=== PATIENT | male | born 1930 | race Caucasian/White ===

== ENCOUNTER 2017-11-03 11:17 | Inpatient (IN) | payer MEDICARE ==
[~2017-11-03] VITALS: Ht 365.8 cm; Wt 89.1 kg
[~2017-11-03 11:17] MED LIST: AMLODIPINE BESYL5 MG PO; ARICEPT5 MG PO; CALCIUM CARBON500 MG PO; CENTRUM MULTIV1 EACH; CICLOPIROX15 GM TOP; COUMADIN3 MG PO; EDARBI40 MG PO; HYDROCHLOROTHIA25 MG PO; LACTULOSE20 GM/30 M PO; LISINOPRIL20 MG PO; METOPROLOL SUCC50 MG PO; METOPROLOL TART50 MG PO; NAMENDA10 MG PO; OYSTER SHELL C1 EA12 PO; POTASSIUM99 M1 PO; TAMSULOSIN HCL0.4 MG PO; VANCOMYCIN HCL500 MG IV; VITAMIN C1500 MG PO; Z TEKTURNA HCT; Z.0.COUMADIN5 MG; Z.0.ESIDRIX25 MG; Z.0.LOPRESSOR50 MG; Z.0.PRINIVIL20 MG
[2017-11-03] MEDS ORDERED: SODIUM CHLORIDE 0.9% 1000ML 1,000 ML IV STA (12:55)
[2017-11-03 13:10] LABS: BASOPHILS % 0.4 % (0.0-1.0); EOSINOPHILS # (AUTO) 0.7 (0.0-0.4); EOSINOPHILS % 8.8 % (0.0-6.0); HEMATOCRIT 35.5 % (38.2-49.6); HEMOGLOBIN 12.5 g/dL (14.0-18.0); LYMPHOCYTES % 25.4 % (18.0-39.1); MEAN CORPUSCULAR HEMOGLOBIN 31.4 pg (28-32); MEAN CORPUSCULAR HGB CONC 35.2 g/dL (31-35); MEAN CORPUSCULAR VOLUME 89.2 fL (81-99); MONOCYTES # (AUTO) 0.7 (0.2-0.8); NEUTROPHILS # (AUTO) 4.5 (2.1-6.9); NEUTROPHILS % 56.1 % (38.7-80.0); PLATELET COUNT 173 x10e3/uL (140-360); RED BLOOD COUNT 3.98 x10e6/uL (4.3-5.7); RED CELL DISTRIBUTION WIDTH 13.3 % (11.7-14.4)
[2017-11-03 13:27] LABS: ALANINE AMINOTRANSFERASE 14 IU/L (0-55); ALBUMIN 3.2 g/dL (3.5-5.0); ALBUMIN/GLOBULIN RATIO 0.8 (0.8-2.0); ALKALINE PHOSPHATASE 74 IU/L (40-150); ANION GAP 10.8 mmol/L (8-16); BLOOD UREA NITROGEN 17 mg/dL (7-26); BUN/CREATININE RATIO 20 (6-25); CALCIUM 8.9 mg/dL (8.4-10.2); CARBON DIOXIDE 27 mmol/L (22-29); CHLORIDE 100 mmol/L (98-107); CREATININE, SERUM 0.87 mg/dL (0.72-1.25); EST GLOMERULAR FILTRATION RATE > 60 ML/MIN (60-); GLUCOSE 101 mg/dL (74-118); POTASSIUM 3.8 mmol/L (3.5-5.1); SODIUM 134 mmol/L (136-145)
--- NOTE | 2017-11-03 13:33 | Diagnostic Imaging Report ---
PROCEDURE:CHEST SINGLE (PORTABLE) TECHNIQUE:Portable AP chest INDICATION:UTI symptoms COMPARISON:Patients [facility], , CHEST SINGLE (PORTABLE), 09/29/2017, 8:17. FINDINGS: Cardiomegaly with central vascular prominence and mild central peribronchial cuffing. No focal airspace disease. 2-lead pacemaker of the right hemithorax; leads intact. Intact skeleton. CONCLUSION: Cardiomegaly with central vascular congestion. No interval change from September 2017. Dictated by: Darien Moreno M.D. on 11/03/2017 at 13:42 Electronically approved by: Darien Moreno M.D. on 11/03/2017 at 13:42
[2017-11-03 15:27] LABS: BILIRUBIN,URINE NEGATIVE (NEGATIVE); COLOR,URINE YELLOW (YELLOW); KETONES,URINE NEGATIVE (NEGATIVE); LEUKOCYTE ESTERASE ,URINE 2+ (NEGATIVE); NITRITE,URINE NEGATIVE (NEGATIVE); PROTEIN,URINE DIPSTICK NEGATIVE (NEGATIVE); URINE UROBILINOGEN 0.2 mg/dL (0.2 - 1)
[2017-11-03 15:29] LABS: CLARITY,URINE CLOUDY (CLEAR)
[2017-11-03 15:43] LABS: RBC,URINE 0-5 /HPF (0-5)
[2017-11-03 15:44] LABS: BACTERIA,URINE FEW /HPF
--- NOTE | 2017-11-03 16:09 | Diagnostic Imaging Report ---
Examination: CT BRAIN WITHOUT CONTRAST History:Altered mental status. Confusion. Comparison studies:November 08, [address] Technique: Axial images were obtained from the skull base to the vertex. Coronal and sagittal images reconstructed from the axial data. Intravenous contrast: None Findings: Scalp: No abnormalities. Bones: No fractures, blastic or lytic lesions. Brain sulci: Moderate volume loss for age. Ventricles: No hydrocephalus. Extra-axial space: No abnormalities. Parenchyma: There are confluent areas of hypoattenuation in the periventricular and subcortical white matter, nonspecific. No masses, hemorrhage, or acute or chronic cortical based vascular insults. Sellar/suprasellar region: CSF filled sella. Craniocervical junction: Patent foramen magnum. No Chiari one malformation. Incidental findings: Punctate tonsillar calcifications are partially visualized. Impression: 1. No new or acute intracranial abnormalities. No change from prior head CT performed November 08, 2016. 2. Unchanged moderate volume loss. 3. Unchanged moderate chronic microvascular ischemic change. Signed by: Dr. Eli Arce M.D. on 11/03/2017 4:06 PM
[2017-11-03] MEDS ORDERED: GENTAMICIN 80MG/NS 100 ML 100 ML IV STA (16:15)
[2017-11-03] MEDS ORDERED: LACTULOSE SYRUP 20 GM/30 ML UDC PO PRN (17:15)
[2017-11-03] MEDS: SODIUM CHLORIDE 0.9% 1000ML 1,000 ML IV SCH (17:46)
[2017-11-03 19:39] VITALS: BP 151/65
[2017-11-03] MEDS: MEMANTINE 10 MG TAB PO SCH (21:59)
[2017-11-03] MEDS: DONEPEZIL HCL 5 MG TAB PO SCH (21:59)
[2017-11-03 22:12] VITALS: BP 151/65
[2017-11-04] VITALS (7 sets, daily range): BP systolic 145–188; BP diastolic 64–85
[2017-11-04] MEDS: SODIUM CHLORIDE 0.9% 1000ML 1,000 ML IV SCH ×3 (04:17→15:54)
[2017-11-04 06:55] LABS: BASOPHILS % 0.3 % (0.0-1.0); EOSINOPHILS # (AUTO) 0.9 (0.0-0.4); EOSINOPHILS % 9.9 % (0.0-6.0); HEMATOCRIT 34.5 % (38.2-49.6); LYMPHOCYTES # (AUTO) 2.5 (1.0-3.2); LYMPHOCYTES % 26.6 % (18.0-39.1); MEAN CORPUSCULAR HGB CONC 34.8 g/dL (31-35); MEAN CORPUSCULAR VOLUME 89.1 fL (81-99); MONOCYTES # (AUTO) 0.8 (0.2-0.8); MONOCYTES % 8.6 % (4.4-11.3); NEUTROPHILS % 54.4 % (38.7-80.0); PLATELET COUNT 168 x10e3/uL (140-360); RED BLOOD COUNT 3.87 x10e6/uL (4.3-5.7); RED CELL DISTRIBUTION WIDTH 13.4 % (11.7-14.4)
[2017-11-04] MEDS ORDERED: BUDESONIDE/FORMOTEROL 160/4.5MCG INHALER INH SCH (07:00)
[2017-11-04 07:17] LABS: BLOOD UREA NITROGEN 13 mg/dL (7-26); BUN/CREATININE RATIO 18 (6-25); CALCIUM 8.7 mg/dL (8.4-10.2); CARBON DIOXIDE 24 mmol/L (22-29); CHLORIDE 105 mmol/L (98-107); CREATININE, SERUM 0.72 mg/dL (0.72-1.25); EST GLOMERULAR FILTRATION RATE > 60 ML/MIN (60-); GLUCOSE 83 mg/dL (74-118); SODIUM 136 mmol/L (136-145)
[2017-11-04] MEDS: MEMANTINE 10 MG TAB PO SCH ×2 (08:35→16:03)
--- NOTE | 2017-11-04 10:19 | History and Physical ---
HISTORY OF PRESENT ILLNESS: Patient was sent to the emergency room by his [employer]. The states the [employer] nurse phoned them and told them to take the patient to the emergency room. 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 The patient's history is not reliable, but he denies adverse symptoms on complete review of systems. The family relates he has not walked for 2 weeks. Prior to that he had walked once or twice over the past year. Essentially for the past year, the patient has been confined to nursing homes or long-term hospital or acute care hospitals except for a few short stays at home. The family is encouraged to keep the patient in a senior care on his last 2 senior care admissions and declined. PAST MEDICAL HISTORY: History is positive for hypertension and chronic atrial fibrillation. Patient has had on recent stays here gross hematuria and has not been able to be anticoagulated recently because of that. He has a history of lower obstructive disease with recommendation for chronic Monaco by his urologist appropriately. BPH. History also includes chronic obesity. Obstructive sleep apnea with CPAP at home. LVH. The patient also has history of syndrome of inappropriate ADH has had intermittent hyponatremia in the past. He is on fluid restriction at home. 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 HOME MEDICATIONS: See also old computerized list of home meds. LABORATORY DATA: Hemoglobin 12.5, white count 7.98, platelets 173,000. Today, his emergency room urinalysis revealed 11 to 20 white cells per high power field. Nitrite, however, is negative. Leukocyte esterase is positive 2+. The patient has a chronic indwelling Monaco. Serum chemistry reveals sodium 134 at this time. Albumin 3.2, trace low. Cultures of urine and blood are pending. Today the emergency room chest x-ray with cardiomegaly and central vascular congestion unchanged from September. of this year. The emergency room performed a brain CT which is unchanged from CT here November 08, 2016 revealing moderate volume loss. Confluent areas of hypoattenuation and periventricular and subcortical white matter nonspecific. CSF filled sella. Punctate calcifications. Chronic microvascular ischemic changes. PAST SURGICAL HISTORY: Includes cataracts 2005 and 2006. In 1983, melanoma. Pacemaker right anterior chest. FAMILY HISTORY: Negative. SOCIAL HISTORY: Currently no use of tobacco or alcohol. 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 PHYSICAL EXAMINATION VITAL SIGNS: Temperature 97.4. Pulse is 62 and regular. Respiratory rate is 18 not labored. Blood pressure 135/62 on arrival and followup BP 168/68. O2 saturation 98%. HEENT: Pupils round and reactive. No icterus or pallor. Throat clear. NECK: Supple. Carotids palpable. No palpable goiter. PULMONARY: On auscultation, the patient is not cooperate for auscultation. CARDIOVASCULAR: Cardiac sounds S1 S2 distant. Patient has a right upper anterior subcutaneous chest pacemaker. ABDOMEN: Soft. Bowel sounds are normal. EXTREMITIES: Free of edema, clubbing or cyanosis. Peripheral pulses are palpable. NEUROLOGIC: DTRs depressed symmetrically. Strength poor. The patient is able to sit up for a short period of time fro a few minutes with assistance only. He moves all 4 extremities. DTRs depressed. No pathological reflexes. CURRENT IMPRESSION: Bacteriuria. Family reports that he was unarousable this morning and, therefore, was sent to the emergency room by his [employer]. History of multiple chronic medical illnesses including chronic dementia. Hypertensive cardiovascular disease with left ventricular hypertrophy. Chronic required pacemaker. Chronic atrial fibrillation. Lower genitourinary obstructive disease with BPH and chronic indwelling Monaco and chronic bacteriuria. Obesity. Obstructive sleep apnea with CPAP at home. Syndrome of inappropriate ADH secretion. Gross hematuria on recent prior stay here. See also initial orders per the emergency room. Current plans are to assure hydration while according inciting of his hyponatremia. Control blood pressure. Treat UTI. The patient needs to be on fall precautions. He is not ambulatory. Avoid bed sores. See initial and followup orders. Job#: [id number] [email or web address]
[2017-11-04] MEDS ORDERED: GENTAMICIN SULFATE IV SCH (15:00)
[2017-11-04] MEDS ORDERED: SODIUM CHLORIDE 0.9% IV SCH (15:00)
[2017-11-04] MEDS ORDERED: GENTAMICIN 80MG/NS 100 ML 100 ML IV SCH (15:00)
[2017-11-04] MEDS: AMLODIPINE BESYLATE 5 MG TAB PO SCH (15:54)
[2017-11-04] MEDS ORDERED: LINEZOLID 600 MG/D5W 300ML 300 ML IV ONE (16:00)
[2017-11-04] MEDS: DONEPEZIL HCL 5 MG TAB PO SCH (20:50)
[2017-11-05] MEDS: SODIUM CHLORIDE 0.9% 1000ML 1,000 ML IV SCH ×3 (00:15→16:15)
[2017-11-05 00:33] VITALS: BP 182/82
[2017-11-05 04:57] VITALS: BP 185/75
[2017-11-05 07:10] LABS: BASOPHILS % 0.4 % (0.0-1.0); EOSINOPHILS # (AUTO) 0.9 (0.0-0.4); EOSINOPHILS % 8.7 % (0.0-6.0); HEMATOCRIT 34.8 % (38.2-49.6); HEMOGLOBIN 11.9 g/dL (14.0-18.0); LYMPHOCYTES # (AUTO) 2.3 (1.0-3.2); LYMPHOCYTES % 21.7 % (18.0-39.1); MEAN CORPUSCULAR HEMOGLOBIN 30.9 pg (28-32); MEAN CORPUSCULAR HGB CONC 34.2 g/dL (31-35); MEAN CORPUSCULAR VOLUME 90.4 fL (81-99); MONOCYTES % 8.9 % (4.4-11.3); NEUTROPHILS # (AUTO) 6.4 (2.1-6.9); PLATELET COUNT 153 x10e3/uL (140-360); RED BLOOD COUNT 3.85 x10e6/uL (4.3-5.7); RED CELL DISTRIBUTION WIDTH 13.4 % (11.7-14.4)
[2017-11-05 07:43] VITALS: BP 179/92
[2017-11-05 07:51] LABS: ANION GAP 10.8 mmol/L (8-16); BLOOD UREA NITROGEN 11 mg/dL (7-26); BUN/CREATININE RATIO 15 (6-25); CALCIUM 8.9 mg/dL (8.4-10.2); CARBON DIOXIDE 25 mmol/L (22-29); CHLORIDE 103 mmol/L (98-107); CREATININE, SERUM 0.72 mg/dL (0.72-1.25); EST GLOMERULAR FILTRATION RATE > 60 ML/MIN (60-); GLUCOSE 87 mg/dL (74-118); POTASSIUM 3.8 mmol/L (3.5-5.1); SODIUM 135 mmol/L (136-145)
--- NOTE | 2017-11-05 09:20 | Progress Note ---
DATE: November 05, 2017 MEDICINE PROGRESS NOTE TIME OF SERVICE: 8:24 a.m. SUBJECTIVE: Overnight patient coughing. REVIEW OF SYSTEMS: Unreliable. VITAL SIGNS: Reviewed. PHYSICAL EXAMINATION GENERAL APPEARANCE: A tired-appearing man resting in bed. HEENT: Anicteric. CARDIOVASCULAR: Normal S1/S2. LUNGS: Moderate breath sounds. Coughing with deep inspiration. ABDOMEN: Soft, nontender, nondistended. EXTREMITIES: No edema. SKIN: Dry. PSYCHIATRIC: Flat affect. LABS: Reviewed. MEDICATIONS: Reviewed. ASSESSMENT AND PLAN: This is an 87-year-old man. 1. Vancomycin-resistant enterococcus urinary tract infection. Use linezolid. 2. Chronic atrial fibrillation, now rate controlled. 3. Acute metabolic encephalopathy secondary to urinary tract infection. Continue linezolid. 4. Physical deconditioning. Physical therapy consultation. 5. Acute bronchitis. Patient is coughing. His chest x-ray did not show any infiltrate. Will treat him with antitussive medication and maybe a Z-Matt if needed. 6. Normocytic anemia, mild. Will follow. 7. Hypertension, uncontrolled. Will titrate medication. 8. Dementia. Continue donepezil and memantine. 9. Prophylaxis. Will use SCDs and Pepcid. 10. Disposition. Start antitussive medication. I have discussed the case with patient's . Will get Physical Therapy on board. Job#: [id number] EV
[2017-11-05] MEDS: LINEZOLID 600 MG/D5W 300ML 300 ML IV SCH ×2 (09:30→20:41)
[2017-11-05] MEDS: MEMANTINE 10 MG TAB PO SCH ×2 (09:30→17:00)
[2017-11-05] MEDS: BENZONATATE 100 MG CAP PO SCH ×3 (09:30→20:42)
[2017-11-05] MEDS: AMLODIPINE BESYLATE 5 MG TAB PO SCH (09:30)
[2017-11-05 11:34] VITALS: BP 181/86
[2017-11-05] MEDS: METOPROLOL SUCCINATE 50 MG TAB XL PO SCH ×2 (11:50→17:00)
[2017-11-05] MEDS: GUAIFENESIN/DEXTROMETHORPHAN LIQD 5 ML UDC NG SCH ×2 (14:00→21:33)
[2017-11-05 16:10] VITALS: BP 138/63
[2017-11-05] MEDS: FAMOTIDINE 20 MG TAB PO SCH (16:30)
[2017-11-05 20:00] VITALS: BP 167/75
[2017-11-05] MEDS: DONEPEZIL HCL 5 MG TAB PO SCH (20:41)
[2017-11-05] MEDS: NIFEDIPINE CR 30 MG TAB PO SCH (20:42)
[2017-11-06] VITALS: BP 132/90
[2017-11-06] MEDS: SODIUM CHLORIDE 0.9% 1000ML 1,000 ML IV SCH ×3 (00:15→16:15)
[2017-11-06 04:00] VITALS: BP 150/89
[2017-11-06] MEDS: GUAIFENESIN/DEXTROMETHORPHAN LIQD 5 ML UDC NG SCH ×4 (05:46→21:46)
[2017-11-06 07:58] VITALS: BP 162/88
[2017-11-06] MEDS: METOPROLOL SUCCINATE 50 MG TAB XL PO SCH ×2 (09:30→17:00)
[2017-11-06] MEDS: NIFEDIPINE CR 30 MG TAB PO SCH ×2 (09:30→20:23)
[2017-11-06] MEDS: FAMOTIDINE 20 MG TAB PO SCH ×2 (09:30→16:30)
[2017-11-06] MEDS: BENZONATATE 100 MG CAP PO SCH ×3 (09:30→20:23)
[2017-11-06] MEDS: MEMANTINE 10 MG TAB PO SCH ×2 (09:30→17:00)
[2017-11-06] MEDS: LINEZOLID 600 MG/D5W 300ML 300 ML IV SCH ×2 (09:45→20:23)
[2017-11-06 12:21] VITALS: BP 111/56
[2017-11-06 16:17] VITALS: BP 138/70
[2017-11-06 20:00] VITALS: BP 138/93
[2017-11-06] MEDS: DONEPEZIL HCL 5 MG TAB PO SCH (20:23)
[2017-11-07] MEDS: SODIUM CHLORIDE 0.9% 1000ML 1,000 ML IV SCH ×3 (00:15→16:15)
[2017-11-07 04:00] VITALS: BP 158/75
[2017-11-07] MEDS: GUAIFENESIN/DEXTROMETHORPHAN LIQD 5 ML UDC NG SCH ×3 (05:21→21:21)
[2017-11-07] MEDS: FAMOTIDINE 20 MG TAB PO SCH ×2 (07:30→16:30)
[2017-11-07 08:38] VITALS: BP 169/79
[2017-11-07] MEDS: LINEZOLID 600 MG/D5W 300ML 300 ML IV SCH ×2 (08:41→21:20)
[2017-11-07] MEDS: NIFEDIPINE CR 30 MG TAB PO SCH ×2 (09:00→21:20)
[2017-11-07] MEDS: METOPROLOL SUCCINATE 50 MG TAB XL PO SCH ×2 (09:00→17:00)
[2017-11-07] MEDS: MEMANTINE 10 MG TAB PO SCH ×2 (09:00→17:00)
[2017-11-07] MEDS: BENZONATATE 100 MG CAP PO SCH ×3 (09:00→21:20)
[2017-11-07 16:00] VITALS: BP 190/75
[2017-11-07 20:00] VITALS: BP 181/86
[2017-11-07] MEDS: DONEPEZIL HCL 5 MG TAB PO SCH (21:20)
[2017-11-08] VITALS: BP 153/75
[2017-11-08] MEDS: SODIUM CHLORIDE 0.9% 1000ML 1,000 ML IV SCH ×3 (00:15→16:15)
[2017-11-08 04:00] VITALS: BP 159/84
[2017-11-08] MEDS: GUAIFENESIN/DEXTROMETHORPHAN LIQD 5 ML UDC NG SCH ×3 (05:20→21:04)
[2017-11-08 08:16] VITALS: BP 165/79
[2017-11-08] MEDS: FAMOTIDINE 20 MG TAB PO SCH ×2 (08:30→16:45)
[2017-11-08] MEDS: LINEZOLID 600 MG/D5W 300ML 300 ML IV SCH ×2 (10:30→21:04)
[2017-11-08] MEDS: NIFEDIPINE CR 30 MG TAB PO SCH ×2 (10:34→21:04)
[2017-11-08] MEDS: METOPROLOL SUCCINATE 50 MG TAB XL PO SCH ×2 (10:34→16:45)
[2017-11-08] MEDS: MEMANTINE 10 MG TAB PO SCH ×2 (10:34→16:45)
[2017-11-08] MEDS: BENZONATATE 100 MG CAP PO SCH ×3 (10:34→21:04)
--- NOTE | 2017-11-08 11:01 | Diagnostic Imaging Report ---
PROCEDURE: A single AP view of the chest. COMPARISON: Portable chest 11/03/2017. INDICATIONS: CONFUSION/UTI FINDINGS: Lines/tubes: Right chest cardiac device with leads projecting over the expected regions of the right atrium and ventricle. Lungs: The lungs are well inflated and clear. There is no evidence of pneumonia or pulmonary edema. Bibasilar atelectasis. Pleura: There is no pleural effusion or pneumothorax. Heart and mediastinum: The heart and the mediastinum are unremarkable. Bones: No acute bony abnormality. Degenerative changes of the thoracic spine. IMPRESSION: No acute radiographic abnormality. Dictated by: Otto Colon M.D. on 11/08/2017 at 11:09 Electronically approved by: Otto Colon M.D. on 11/08/2017 at 11:09
[2017-11-08 12:35] VITALS: BP 139/87
[2017-11-08 16:33] VITALS: BP 177/81
[2017-11-08 20:00] VITALS: BP 180/88
[2017-11-08] MEDS: DONEPEZIL HCL 5 MG TAB PO SCH (21:04)
[2017-11-09] VITALS: BP 151/73
[2017-11-09] MEDS: SODIUM CHLORIDE 0.9% 1000ML 1,000 ML IV SCH ×3 (00:15→16:15)
--- NOTE | 2017-11-09 03:19 | Progress Note ---
DATE: November 08, 2017 TIME: 4:30 a.m. OVERNIGHT: No events. REVIEW OF SYSTEMS: Denies any chest pain. Some cough and had a bowel movement. Review of systems negative. PHYSICAL EXAMINATION VITAL SIGNS: Reviewed. GENERAL: A tired-appearing man resting in bed. HEENT: Anicteric. CARDIOVASCULAR: Normal S1 and S2. LUNGS: Moderate breath sounds. Some cough on deep inspiration. ABDOMEN: Soft, nontender and nondistended. EXTREMITIES: No edema. SKIN: Dry. PSYCHIATRIC: Flat affect. LABS: Reviewed. MEDICATIONS: Reviewed. ASSESSMENT: An 87-year-old man with: 1. Vancomycin-resistant enterococcus urinary tract infection. 2. Acute bronchitis. 3. Chronic atrial fibrillation. 4. Acute metabolic encephalopathy due to urinary tract infection. 5. Physical deconditioning. 6. Normocytic anemia. 7. Hypertension. 8. Dementia. 9. Constipation. PLAN 1. Check labs. 2. Obtain chest x-ray. 3. Continue linezolid. 4. Blood pressure control and heart rate control. 5. Continue physical therapy. 6. Bowel regimen for constipation. 7. Discussed case with the at bedside. Job#: [id number] JAZ
[2017-11-09 04:00] VITALS: BP 163/79
[2017-11-09] MEDS: GUAIFENESIN/DEXTROMETHORPHAN LIQD 5 ML UDC NG SCH ×3 (05:15→23:03)
[2017-11-09] MEDS: FAMOTIDINE 20 MG TAB PO SCH ×2 (07:55→17:37)
[2017-11-09] MEDS: LINEZOLID 600 MG/D5W 300ML 300 ML IV SCH ×2 (07:55→21:30)
[2017-11-09 07:57] VITALS: BP 163/86
[2017-11-09] MEDS: MEMANTINE 10 MG TAB PO SCH ×2 (09:40→17:37)
[2017-11-09] MEDS: BENZONATATE 100 MG CAP PO SCH (09:40)
[2017-11-09] MEDS: NIFEDIPINE CR 30 MG TAB PO SCH ×2 (09:40→21:51)
[2017-11-09] MEDS: METOPROLOL SUCCINATE 50 MG TAB XL PO SCH ×2 (09:40→17:37)
[2017-11-09 12:00] VITALS: BP 121/67
[2017-11-09 16:07] VITALS: BP 158/82
--- NOTE | 2017-11-09 18:10 | Progress Note ---
DATE: November 06, 2017 TIME: 6:30 a.m. OVERNIGHT: Patient still constipated. REVIEW OF SYSTEMS: Denies any chest pain. PHYSICAL EXAMINATION: VITAL SIGNS: Reviewed. GENERAL APPEARANCE: Tired-appearing man resting in bed. HEENT: Anicteric. CARDIOVASCULAR: Normal S1 and S2. LUNGS: Moderate breath sounds. Mildly coarse with coughing. ABDOMEN: Soft, nontender, nondistended. EXTREMITIES: No edema. SKIN: Dry. PSYCHIATRIC: Flat affect. LABS: Reviewed. MEDICATIONS: Reviewed. ASSESSMENT: An 87-year-old man: 1. Vancomycin-resistant Enterococcus urinary tract infection. 2. Chronic atrial fibrillation. 3. Acute metabolic encephalopathy secondary to urinary tract infection. 4. Physical deconditioning. 5. Acute bronchitis. 6. Normocytic anemia. 7. Hypertension. 8. Dementia. PLAN: 1. Patient received linezolid. 2. Heart rate control. 3. Antitussive medication. 4. Bowel regimen. 5. Physical therapy. Job#: [id number]
[2017-11-09 18:38] LABS: BASOPHILS # (AUTO) 0.1 (0.0-0.1); BASOPHILS % 0.8 % (0.0-1.0); EOSINOPHILS # (AUTO) 0.6 (0.0-0.4); EOSINOPHILS % 7.1 % (0.0-6.0); HEMATOCRIT 38.1 % (38.2-49.6); HEMOGLOBIN 12.4 g/dL (14.0-18.0); LYMPHOCYTES # (AUTO) 1.9 (1.0-3.2); LYMPHOCYTES % 24.8 % (18.0-39.1); MEAN CORPUSCULAR HEMOGLOBIN 30.8 pg (28-32); MEAN CORPUSCULAR HGB CONC 32.5 g/dL (31-35); MEAN CORPUSCULAR VOLUME 94.8 fL (81-99); MONOCYTES # (AUTO) 0.8 (0.2-0.8); MONOCYTES % 10.6 % (4.4-11.3); NEUTROPHILS # (AUTO) 4.3 (2.1-6.9); NEUTROPHILS % 55.7 % (38.7-80.0); PLATELET COUNT 137 x10e3/uL (140-360); RED BLOOD COUNT 4.02 x10e6/uL (4.3-5.7); RED CELL DISTRIBUTION WIDTH 13.4 % (11.7-14.4)
[2017-11-09 18:56] LABS: ANION GAP 10.7 mmol/L (8-16); BLOOD UREA NITROGEN 11 mg/dL (7-26); BUN/CREATININE RATIO 14 (6-25); CALCIUM 8.7 mg/dL (8.4-10.2); CARBON DIOXIDE 26 mmol/L (22-29); CHLORIDE 99 mmol/L (98-107); CREATININE, SERUM 0.78 mg/dL (0.72-1.25); EST GLOMERULAR FILTRATION RATE > 60 ML/MIN (60-); GLUCOSE 130 mg/dL (74-118); POTASSIUM 3.7 mmol/L (3.5-5.1); SODIUM 132 mmol/L (136-145)
--- NOTE | 2017-11-09 19:18 | Progress Note ---
DATE: November 07, 2017 TIME: 7 a.m. OVERNIGHT: No events. REVIEW OF SYSTEMS: No chest pain. PHYSICAL EXAMINATION VITAL SIGNS: Reviewed. GENERAL: A tired-appearing man resting in bed. HEENT: Anicteric. CARDIOVASCULAR: Normal S1 and S2. LUNGS: Moderate breath sounds. ABDOMEN: Soft, nontender and nondistended. EXTREMITIES: No edema. SKIN: Dry. PSYCHIATRIC: Flat affect. LABS: Reviewed. MEDICATIONS: Reviewed. ASSESSMENT: An 87-year-old man with: 1. Vancomycin-resistant enterococcus/urinary tract infection. 2. Chronic atrial fibrillation. 3. Acute metabolic encephalopathy. 4. Physical deconditioning. 5. Acute bronchitis. 6. Normocytic anemia, mild. 7. Dementia. PLAN 1. Continue linezolid. 2. Continue antitussive medications. 3. Bowel regimen. 4. Physical therapy. Job#: [id number] [place]
[2017-11-09 19:37] LABS: BILIRUBIN,URINE NEGATIVE (NEGATIVE); COLOR,URINE YELLOW (YELLOW); KETONES,URINE NEGATIVE (NEGATIVE); LEUKOCYTE ESTERASE ,URINE 2+ (NEGATIVE); URINE UROBILINOGEN 0.2 mg/dL (0.2 - 1)
[2017-11-09 19:39] LABS: CLARITY,URINE SL CLOUDY (CLEAR); NITRITE,URINE POSITIVE (NEGATIVE); PROTEIN,URINE DIPSTICK 1+ (NEGATIVE)
[2017-11-09 19:43] LABS: BACTERIA,URINE MANY /HPF; EPITHELIAL CELLS,URINE RARE /LPF; MUCUS,URINE FEW (RARE); WBC,URINE (MAN) 21-50 /HPF (0-5)
[2017-11-09 20:00] VITALS: BP 156/82
[2017-11-09] MEDS: DONEPEZIL HCL 5 MG TAB PO SCH (21:51)
[2017-11-10] VITALS (7 sets, daily range): BP systolic 111–179; BP diastolic 69–92
[2017-11-10] MEDS: GUAIFENESIN/DEXTROMETHORPHAN LIQD 5 ML UDC NG SCH ×3 (06:06→22:01)
[2017-11-10] MEDS: FAMOTIDINE 20 MG TAB PO SCH ×2 (08:05→18:18)
[2017-11-10] MEDS: LINEZOLID 600 MG/D5W 300ML 300 ML IV SCH ×2 (08:05→20:50)
[2017-11-10] MEDS: METOPROLOL SUCCINATE 50 MG TAB XL PO SCH ×2 (09:00→18:18)
[2017-11-10] MEDS: NIFEDIPINE CR 30 MG TAB PO SCH ×2 (09:00→20:50)
[2017-11-10] MEDS: MEMANTINE 10 MG TAB PO SCH ×2 (09:00→18:18)
--- NOTE | 2017-11-10 20:38 | Consultation ---
DATE OF CONSULTATION: November 10, 2017 REASON FOR CONSULTATION: Evaluate cardiac status, pacemaker. HISTORY: I was greg that his was at bedside. She gave me a lot of information. I reviewed his old records and the nurse's notes and I was able to get excellent history. Apparently, he is an unfortunate 87-year-old gentleman who was in his usual status of health. He is suffering from Alzheimer's which is becoming progressively worse. However, for the last 2 weeks his case was worsening. He was checked by [employer] nurse and she advised him to come to the emergency room. He came to this institution on 11/05/2017 diagnosed with urinary tract infection with Enterococcus faecalis, VRE resistant. His blood cultures were negative. His BNP was at 193. TSH at 1.8. Cardiac-hinds patient used to be followed by Dr. Price . He had an episode of syncope and he had pacemaker implantation many years ago. He had his latest third time generator change in 2013. The pacemaker is [employer]. The last time his pacemaker was checked was a long time ago. His cannot take him any more downtown. He is known to have longstanding history of hypertension and "sick heart". He does not have coronary artery disease. However, he did have any cardiac stress test or any ischemic evaluation for a long time. His activities are very limited and everything attributed to his dementia which is getting progressively worse and very difficult to take care of him. He is becoming more obtunded. He is having fever and that is why he came to the emergency room. Patient after admission started on lead. He continued on his nifedipine and metoprolol. REVIEW OF SYSTEMS: CARDIAC: As per above. PULMONARY: Occasional difficulty swallowing and "choking" with food. GI: Patient totally dependent in his care on his and his family. : Repeated urinary tract infections and need for Monaco catheter. NEUROMUSCULAR: Aches and pain, nonspecific. Patient becoming less and less and almost is not ambulatory. Memory: The patient does have very advanced memory loss. 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 He is nonsmoker, [id number]. PAST MEDICAL HISTORY: 1. Hypertension. 2. History of chronic atrial fibrillation. 3. Repeated urinary tract infections and hematuria. Patient is off anticoagulation because of that. 4. Dementia. 5. Repeated prostate problem. 6. Repeated admission with urinary tract infection. 7. Repeated admission with electrolyte imbalance and hyponatremia. 8. Degenerative joint disease. CURRENT MEDICATIONS: Linezolid 300 mg every 12 hours. Aricept 10 mg night. Memantine 10 mg twice a day. Metoprolol succinate 50 mg twice a day. Nifedipine 30 mg twice a day. Lactulose 20 gram daily. ALLERGIES: LEVAQUIN, CEPHALEXIN, METHYLPREDNISOLONE. FAMILY HISTORY: Noncontributory with no history of premature coronary artery disease. PHYSICAL EXAMINATION GENERAL: An elderly gentleman, confused. His at bedside giving all information. VITAL SIGNS: Height of 6 feet, weight of 190 pounds. Blood pressure 140/80. Heart rate of 60. Respiratory rate of 18. HEENT: Pupils are reactive. Mucosa seems to be dry. NECK: No elevation of jugular venous pulsation. No bruit. CHEST: Pacemaker is noted in place, otherwise clear to auscultation and percussion. HEART: Normal 1st and 2nd heart sounds. ABDOMEN: Soft with no organomegaly. No abdominal bruits. Diaper is noted in place. Monaco catheter is noted in place. EXTREMITIES: No cyanosis. No clubbing. No edema. He is able to move his extremities. NEUROLOGIC: Patient is totally confused. He is able to move his extremities with stimulation. LABORATORY DATA: Sodium 132. Potassium 3.7. BUN of 11. Creatinine 0.8. White blood cell count of 7.7. Hemoglobin 12.4. Hematocrit 38%. Platelet count of 137,000. BNP of 193. TSH 1.8. Urine is positive for Enterococcus faecalis, VRE. Blood cultures are negative. IMPRESSION AND PLAN: 1. Admission with urinary tract infection, vancomycin resistant enterococcus resistant. Enterococcus faecalis. 2. Dementia. 3. Atrial fibrillation. 4. Repeated urinary tract infection and hemorrhagic, possible cystitis. 5. Debility. 6. Advanced dementia. 7. Severe hypertension. 8. Pacemaker dependency. RECOMMENDATIONS: Cardiac-hinds my recommendation is conservative approach. Will continue his calcium channel manuela and beta manuela. Will check his pacemaker. Will check an echocardiogram. Will follow patient's progression with you. I would like to thank you for your kind referral. Job#: [id number]
[2017-11-10] MEDS: DONEPEZIL HCL 5 MG TAB PO SCH (20:50)
[2017-11-11] VITALS: BP 163/91
[2017-11-11 04:00] VITALS: BP 165/87
[2017-11-11] MEDS: GUAIFENESIN/DEXTROMETHORPHAN LIQD 5 ML UDC NG SCH ×3 (06:20→20:39)
[2017-11-11] MEDS: FAMOTIDINE 20 MG TAB PO SCH ×2 (07:30→16:30)
[2017-11-11 07:50] VITALS: BP 172/110
[2017-11-11] MEDS: LINEZOLID 600 MG/D5W 300ML 300 ML IV SCH ×2 (08:39→20:38)
[2017-11-11] MEDS: NIFEDIPINE CR 30 MG TAB PO SCH ×2 (08:40→20:39)
[2017-11-11] MEDS: METOPROLOL SUCCINATE 50 MG TAB XL PO SCH ×2 (08:40→17:00)
[2017-11-11] MEDS: MEMANTINE 10 MG TAB PO SCH ×2 (08:40→17:00)
[2017-11-11 11:31] VITALS: BP 157/88
[2017-11-11 16:02] VITALS: BP 184/92
[2017-11-11 20:00] VITALS: BP 167/84
[2017-11-11] MEDS: DONEPEZIL HCL 5 MG TAB PO SCH (20:39)
[2017-11-12] VITALS: BP 163/78
[2017-11-12 05:30] VITALS: BP 172/89
[2017-11-12] MEDS: GUAIFENESIN/DEXTROMETHORPHAN LIQD 5 ML UDC NG SCH (05:50)
[2017-11-12] MEDS: NIFEDIPINE CR 30 MG TAB PO SCH ×2 (05:50→11:21)
[2017-11-12 07:31] VITALS: BP 149/83
[2017-11-12] MEDS: MEMANTINE 10 MG TAB PO SCH (09:05)
[2017-11-12] MEDS: FAMOTIDINE 20 MG TAB PO SCH (09:05)
[2017-11-12] MEDS: LINEZOLID 600 MG/D5W 300ML 300 ML IV SCH (09:05)
[2017-11-12] MEDS: METOPROLOL SUCCINATE 50 MG TAB XL PO SCH (09:05)
[2017-11-12 11:14] VITALS: BP 170/92
--- NOTE | 2017-11-13 09:20 | Discharge Summary ---
The patient was sent to the emergency room by his [employer]s home nurses who called the home, according to the , and stated they were concerned about him. Upon arrival he was hospitalized by Dr. Abebe, ER physician. See also ER notes. See history and physical. Database was ordered to be obtained and monitored. ER performed head CT because of the patient's poor responsiveness at home. See report. Unchanged CT from November 08, 2016. The patient has chronic prostatic hypertrophy with lower obstruction and chronic required Monaco catheter. He has been seen by his urologist multiple times recently, and family and patient were agreeable regarding no more aggressive care than chronic Monaco. He has associated chronic bacteriuria. As the patient's dementia was worse, the bacteriuria was treated medically while here. The patient's hypertension was treated. His pacemaker was reassessed by Dr. Cooper per family's request while the patient was here. The patient has chronic atrial fibrillation but has not been able to take anticoagulants recently because of recent episode of gross hematuria. History includes obstructive sleep apnea with CPAP at home, which was ordered to be continued here. History includes syndrome of inappropriate ADH secretion, and the patient requires fluid restriction chronically. Unfortunately, the family had related the patient's home nurse was pushing fluids last week. See also electronic medical record. Serial white counts remained normal. Hemoglobin 12.4 November 09. Platelet count normal on arrival. Pyuria on serial urinalyses. Serum chemistries monitored. Natriuretic peptide 193. TSH 1.7. Chemistries on arrival with sodium of 134. TSH 1.7. Sodium 135 on November 05, 132 on November 09. Urine culture with enterococcus on the , with pseudomonas on the . The patient has no fever or dysuria or hematuria at this time, and his bacteriuria treatment with antibiotics will be held at this time. No oral antibiotics were effective against his pseudomonas. He was sensitive to Azactam, ceftazidime, cefepime, Merrem and Zosyn. The patient does have a history of ALLERGY TO SULFA AND PENICILLIN, however. 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 Possibility of LTAC assessment was posed to his [employer] insurance [employer] and LTAC was not approved to date. Plans are, per family's wishes, to resume home care. The family is considering hospice. The family has made the patient a DNR patient. FINAL IMPRESSIONS: As above. Chronic organic brain syndrome, progressive. Multiple chronic medical illnesses including: Atherosclerotic cardiovascular disease with chronic atrial fibrillation, pacemaker functioning well. Syndrome of inappropriate antidiuretic hormone secretion. Lower genitourinary obstruction secondary to prostatic hypertrophy requiring chronic indwelling Monaco. Exogenous obesity with obstructive sleep apnea. Left ventricular hypertrophy. Primary hypertension. Home medications were discussed with the family with refills for [id number] required regimen called in by my office. JACKSON BALBUENA MD Job#: [id number] EV
== END 2017-11-12 13:50 | disposition home or self-care (01) | DRG 698 ==
LOC: ER 11:17 → ERHOLD 18:24 → IMCU 19:39 → OBSVTOIN 11-05 08:19 → MED/SURG3 11-05 14:29
PROVIDERS: ADMIT Internal Medicine; ATTEND Internal Medicine
DX: T83.511A Infection and inflammatory reaction due to indwelling urethral catheter, initial encounter (principal); G93.41 Metabolic encephalopathy; E22.2 Syndrome of inappropriate secretion of antidiuretic hormone; I48.2 Chronic atrial fibrillation; D64.9 Anemia, unspecified; Z68.44 Body mass index [BMI] 60.0-69.9, adult; N13.8 Other obstructive and reflux uropathy; N39.0 Urinary tract infection, site not specified; Z95.0 Presence of cardiac pacemaker; B95.2 Enterococcus as the cause of diseases classified elsewhere; G30.9 Alzheimer's disease, unspecified; F02.80 Dementia in other diseases classified elsewhere, unspecified severity, without behavioral disturbance, psychotic disturbance, mood disturbance, and anxiety; I25.10 Atherosclerotic heart disease of native coronary artery without angina pectoris; G47.33 Obstructive sleep apnea (adult) (pediatric); F51.9 Sleep disorder not due to a substance or known physiological condition, unspecified; E66.01 Morbid (severe) obesity due to excess calories; I51.7 Cardiomegaly; F09 Unspecified mental disorder due to known physiological condition; Z79.01 Long term (current) use of anticoagulants; N40.1 Benign prostatic hyperplasia with lower urinary tract symptoms; Z16.21 Resistance to vancomycin; J20.9 Acute bronchitis, unspecified; K59.00 Constipation, unspecified; M19.90 Unspecified osteoarthritis, unspecified site
CPT/HCPCS: 36415; 70450; 71010; 80048; 80053; 81001; 83880; 84443; 85025; 87040; 87086; 87186; 93005; 93306; 96361; 97139; 99284; G0378; J1580; J2020; J7030